=== PATIENT | female | born 1970 | race Caucasian/White ===

== ENCOUNTER 2020-06-12 22:42 | Inpatient (IN) ==
[2020-06-12] MEDS ORDERED: diphenhydrAMINE 50 MG/ML VIAL IV STA (22:54)
[2020-06-12] MEDS ORDERED: methylPREDNISolone 125 MG/2 ML VIAL IV STA (22:54)
--- NOTE | 2020-06-12 22:54 | Emergency Department Note ---
Impression & Plan Hypertensive emergency, Paresthesia of right arm and leg, Right arm weakness ED Provider Note Name: EVIE BARBOSA Age: 50 Sex: F Arrives Via: Walk-In Informant: Patient ED Provider: Hector Tracy MD Chief Complaint: Right sided weakness Impression: Hypertensive Emergency Paresthesia of right arm and leg Right arm weakness Medical Decision Makin yr old female with no significant PMH arrives with intermittent right arm/face/leg paresthesias and weakness. Anxious and severely HTN on arrival though without headache nor current neuro deficit. Given IV benadryl/solumedrol for contrast allergy and sent for CTa head w/wo con and cta neck. Given IV labetalol for HTN with mild initial improvement.. Labs OK, CXR clear, and EKG unremarkable. Suspect HTN emergency though TIA is clearly in differential. Given ASA 324 as no bleed. 2nd dose labetalol and SBP in 150s without further symptoms while here. Patient discussed with Hospitalist who will bring in for further management. Triage/Nursing Notes reviewed by Me Differentials:Benign hypertension, hypertensive emergency, tia/cva, cardiovascular pathology, toxicologic, pheochromocytoma, electrolyte abnormality, renal disease, endorgan damage, as well as other pathologies. Vital Signs: reviewed and remarkable for HTN Interventions: Benadryl 50mg IV, Solumedrol 125mg IV, ASA 324mg PO, Labetalol 10 mg IV x 2 Labs:Reviewed and remarkable for no significant abnormalities Imaging:X ray results are stated below per my interpretation: Chest: 1 view: No infiltrate, no effusion, normal cardiac border. [facility] Radiologist interpretation reviewed by me: CTA head/neck w wo con: no acute findings EKG:Per My Interpretation: Indication Stroke: NSR 73 bpm, qtc 425. No Ectopy. There are slight inferior ST depressions. No previous EKG for comparison. Cardiac/Tele Monitoring: Cardiac Monitoring: An Order was placed for continuous cardiac monitoring. The monitor shows a rate of 75 with a normal sinus rhythm. Consults:Dr Tomás Huddleston Hospitalist Plan: Disposition:Hospitalization. Condition: Good Prescriptions:None PDMP: n/a History of Present Illness:50 yr old female arrives for evaluation of right sided weakness and tingling. Patient notes she was feeling well the last few days and having a regular day. This evening noted episode around 7pm of tingling and paresthesias of right face, arm and leg. This went away and then returned again within the last hour. She notes symptoms involved weak/heavy feeling in extremity. Resolved en route to ED. No interventions prior to arrival. Nothing makes better nor worse, symptoms just seem to be coming and going. No medications taken tonight. Denies drugs, alcohol use. No trauma, injuries, nor falls. She denies headache, neck pain, vision changes, cp, sob, fevers, chills, nausea, vomiting, abdominal pain, back pain, leg swelling, urinary/bowel symptoms nor other symptoms ROS: See above HPI for pertinent positives & negatives. A total of 10 systems reviewed and were otherwise negative. Past Medical History:None Past Surgical History:Denies Family History:Brother: Stroke at 45yrs old Social History:Smoker for 20 yrs, Home Medications:None Allergies:IV Dye, Walnuts Vitals:Blood Pressure: 246/120, Pulse 74, RR 17, T 36.6C, O2 95% on RA Physical Exam: GENERAL: Patient is severely anxious appearing and in mild distress. EYES: No scleral icterus, unremarkable pupils. ENT: Mucous membranes moist, no nasal congestion. NECK: No masses appreciated, nomeningismus, trachea is midline. RESPIRATORY: No dyspnea. Clear to auscultation and equal bilaterally. No wheeze, no rhonchi. CARDIOVASCULAR: Regular rate and rhythm.No murmurs, rubs, gallops appreciated. GASTROINTESTINAL: Abdomen soft, non-tender, no peritonitis.Bowel sounds positive.No masses appreciated. BACK: No midline tenderness, no CVA tenderness EXTREMITIES: Normal motion all extremities, no cyanosis, no edema. NEUROLOGIC: Alert and oriented, no acute motor or sensory deficits, no focal weakness, cranial nerves grossly intact. SKIN: No rash, no jaundice, no diaphoresis. PSYCH: Appropriate, anxious GCS: 15 ED Course: Times/Reassessments: no further neuro complaints. BP gradually improving with labetalol. Critical Care: I have personally spent 30 minutes of critical care time in the direct management of this patient. Hypertensive Emergency with multiple antihypertensive IV meds. This was a life/limb threatening event. This 30 minutes is in excess of all separately billable procedures. Hector Tracy MD Past Med/Surg History Social History Smoking Status: Light tobacco smoker Hx Alcohol Use: Yes Hx Substance Use: No Preferred Language: Tajik Beliefs That Will Affect Care: None Current Living Situation: Spouse Feels Safe at Home: Yes Safety Concerns: Feels Safe At This Time Assistive Devices: Glasses Allergies Allergies Allergy/AdvReac Type Severity Reaction Status Date / Time tomato Allergy Unknown FRESH Unverified 06/12/20 23:31 TOMATOES HIVES walnut Allergy Unknown ULCERS Unverified 06/12/20 23:31 MOUTH CONTRASTMEDIA Allergy Unknown IVP Uncoded 06/12/20 23:31 DYE----HIVES Home Meds Home Medications Medication Instructions Recorded Confirmed No Known Home Medications 06/12/20 06/12/20 Results & Data (ED) Vital Signs Vital Signs - 24 hr 06/12/20 22:50 06/13/20 00:43 Temperature 36.6 C Temperature Source Oral Pulse Rate 74 Respiratory Rate 17 17 Respiratory Effort / Characteristics Non-Labored Spontaneous Non-Labored Spontaneous Respiratory Depth Normal Normal Respiratory Pattern Regular Regular Blood Pressure 246/120 H Blood Pressure [Right Arm] 220/110 H Blood Pressure Mean 162 Blood Pressure Mean [Right Arm] 146 Blood Pressure Position Semi-fowlers Pulse Oximetry 95 95 Oxygen Delivery Method Room Air Room Air Sepsis Recent Fever Within 48 Hours No Sepsis New/Unexplained Change in Mental Status No Sepsis Action Taken by Nursing No Action Required Laboratory Data Result diagrams: 06/12/20 22:59 06/12/20 22:59 Lab Results 06/12/20 06/12/20 06/12/20 Range/Units 22:58 22:58 22:59 WBC 9.17 (4.8-10.8) K/uL RBC 4.25 (4.2-5.4) M/uL Hgb 10.4 L (12.0-16.0) g/dL POC Hgb (12.0-16.0) g/dl Hct 32.4 L (37-47) % POC Hct (37-47) % MCV 76.2 L (80-100) fL MCH 24.5 L (25-34) pg MCHC 32.1 (32-36) g/dL RDW Std Deviation 42.1 (36.4-46.3) fL RDW Coeff of Mariama 14.9 H (11.5-14.5) % Plt Count 303 (130-400) K/uL MPV 11.0 H (7.4-10.4) fL Immature Gran % (Auto) 0.2 % Neut % (Auto) 60.0 % Lymph % (Auto) 32.0 % [place] % (Auto) 4.8 % Eos % (Auto) 2.7 % Baso % (Auto) 0.3 % Neut # (Auto) 5.50 (1.4-6.5) K/uL Lymph # (Auto) 2.93 (1.2-3.4) K/uL [place] # (Auto) 0.44 (0.11-0.59) K/uL Eos # (Auto) 0.25 (0-0.5) K/uL Baso # (Auto) 0.03 (0-0.2) K/uL Immature Gran # (Auto) 0.02 (0.00-0.02) K/uL POC Sodium (135-144) mmol/L Sodium (136-145) mmol/L POC Potassium (3.3-5.0) mmol/L Potassium (3.5-5.1) mmol/L POC Chloride (101-112) mmol/L Chloride (98-107) mmol/L Carbon Dioxide (21-32) mmol/L POC Total CO2 (24-31) mmol/L Anion Gap (3-11) POC Anion Gap (16-25) mmol/L POC BUN (7-18) mg/dl BUN (7-18) mg/dl Creatinine (0.6-1.2) mg/dl POC Creatinine (0.6-1.3) mg/dl Est Cr Clr Drug Dosing ml/min Est GFR ( Amer) Est GFR (Non-Af Amer) BUN/Creatinine Ratio (10-20) Glucose (70-99) mg/dl POC Glucose (other) (70-99) mg/dl Calcium (8.5-10.1) mg/dl POC Ioniz Calcium Temo (1.12-1.32) mmol/l Magnesium (1.8-2.4) mg/dl Total Bilirubin (0.2-1) mg/dl Direct Bilirubin (0-0.2) mg/dl AST (15-37) U/L ALT (12-78) U/L Alkaline Phosphatase (45-117) U/L Troponin I (0-0.045) ng/ml Total Protein (6.4-8.2) gm/dl Albumin (3.4-5.0) gm/dl Urine Color Urine Appearance (Clear) Urine pH (4.5-7.5) Ur Specific [place] (1.000-1.030) Urine Protein (Negative) Urine Glucose (UA) (Negative) Urine Ketones (Negative) Urine Blood (Negative) Urine Nitrite (Negative) Urine Bilirubin (Negative) Urine Urobilinogen (Negative) Ur Leukocyte Esterase (Negative) COVID-19 Eval Order Covid19 IDNow [facility] SARS-CoV-2, RNA, NAAT NEGATIVE (NEGATIVE) 06/12/20 06/12/20 06/13/20 Range/Units 22:59 23:01 00:30 WBC (4.8-10.8) K/uL RBC (4.2-5.4) M/uL Hgb (12.0-16.0) g/dL POC Hgb 10.9 L (12.0-16.0) g/dl Hct (37-47) % POC Hct 32 L (37-47) % MCV (80-100) fL MCH (25-34) pg MCHC (32-36) g/dL RDW Std Deviation (36.4-46.3) fL RDW Coeff of Mariama (11.5-14.5) % Plt Count (130-400) K/uL MPV (7.4-10.4) fL Immature Gran % (Auto) % Neut % (Auto) % Lymph % (Auto) % [place] % (Auto) % Eos % (Auto) % Baso % (Auto) % Neut # (Auto) (1.4-6.5) K/uL Lymph # (Auto) (1.2-3.4) K/uL [place] # (Auto) (0.11-0.59) K/uL Eos # (Auto) (0-0.5) K/uL Baso # (Auto) (0-0.2) K/uL Immature Gran # (Auto) (0.00-0.02) K/uL POC Sodium 139 (135-144) mmol/L Sodium 139 (136-145) mmol/L POC Potassium 3.4 (3.3-5.0) mmol/L Potassium 3.5 (3.5-5.1) mmol/L POC Chloride 102 (101-112) mmol/L Chloride 105 (98-107) mmol/L Carbon Dioxide 26 (21-32) mmol/L POC Total CO2 27 (24-31) mmol/L Anion Gap 8.0 (3-11) POC Anion Gap 14.0 L (16-25) mmol/L POC BUN 10 (7-18) mg/dl BUN 10 (7-18) mg/dl Creatinine 1.02 (0.6-1.2) mg/dl POC Creatinine 0.9 (0.6-1.3) mg/dl Est Cr Clr Drug Dosing 67.1 ml/min Est GFR ( Amer) 73.8 Est GFR (Non-Af Amer) 63.6 BUN/Creatinine Ratio 9.7 L (10-20) Glucose 111 H (70-99) mg/dl POC Glucose (other) 106 H (70-99) mg/dl Calcium 8.7 (8.5-10.1) mg/dl POC Ioniz Calcium [place] 1.13 (1.12-1.32) mmol/l Magnesium 2.0 (1.8-2.4) mg/dl Total Bilirubin 0.2 (0.2-1) mg/dl Direct Bilirubin < 0.1 (0-0.2) mg/dl AST 6 L (15-37) U/L ALT 15 (12-78) U/L Alkaline Phosphatase 86 (45-117) U/L Troponin I < 0.015 (0-0.045) ng/ml Total Protein 7.7 (6.4-8.2) gm/dl Albumin 3.4 (3.4-5.0) gm/dl Urine Color Yellow Urine Appearance Clear (Clear) Urine pH 7.5 (4.5-7.5) Ur Specific [place] 1.030 (1.000-1.030) Urine Protein Negative (Negative) Urine Glucose (UA) Negative (Negative) Urine Ketones Negative (Negative) Urine Blood Negative (Negative) Urine Nitrite Negative (Negative) Urine Bilirubin Negative (Negative) Urine Urobilinogen Negative (Negative) Ur Leukocyte Esterase Negative (Negative) COVID-19 Eval Order SARS-CoV-2, RNA, NAAT (NEGATIVE) Administered Medications Labetalol HCl (Labetalol Hcl Iv 5 Mg/Ml 20ml) 10 mg IV Q4H PRN PRN Reason: Hypertension Stop: 07/13/20 02:25 Last Admin: 06/13/20 02:42 Dose: 10 mg Documented by: [id number] Cosigned by: [id number] Discontinued Medications Aspirin (Aspirin 81 Mg Chew) 324 mg PO NOW STA Stop: 06/13/20 00:03 Last Admin: 06/13/20 00:13 Dose: 324 mg Documented by: [id number] Diphenhydramine HCl (Diphenhydramine 50 Mg/Ml Vial) 50 mg IV NOW STA Stop: 06/12/20 22:55 Last Admin: 06/12/20 22:58 Dose: 50 mg Documented by: [id number] Hydralazine HCl (Hydralazine Hcl 20 Mg/Ml Vial) 7.5 mg IV NOW STA Stop: 06/13/20 02:04 Last Admin: 06/13/20 02:12 Dose: 7.5 mg Documented by: [id number] Ioversol (Optiray 320 125ml) 125 ml IV ONCE ONE Stop: 06/12/20 23:16 Last Admin: 06/12/20 23:16 Dose: 118 ml Documented by: [id number] Labetalol HCl (Labetalol Hcl Iv 5 Mg/Ml 20ml) 10 mg IV NOW STA Stop: 06/12/20 23:10 Last Admin: 06/12/20 23:31 Dose: 10 mg Documented by: [id number] Cosigned by: [id number] Labetalol HCl (Labetalol Hcl Iv 5 Mg/Ml 20ml) 10 mg IV NOW STA Stop: 06/13/20 00:53 Last Admin: 06/13/20 00:56 Dose: 10 mg Documented by: [id number] Cosigned by: [id number] Methylprednisolone (Methylprednisolone 125 Mg/2 Ml Vial) 125 mg IV NOW STA Stop: 06/12/20 22:55 Last Admin: 06/12/20 22:58 Dose: 125 mg Documented by: [id number] Discharge Plan Visit Data Chief Complaint: Stroke/CVA Symptoms Stated Complaint: RIGHT SIDE OF FACE IS NUMB, LEG AND ARM ED Provider: Hector Tracy Discharge Problem: Hypertensive emergency, Paresthesia of right arm and leg, Right arm weakness Patient Disposition: Admitted As Inpatient Discharge Instructions Interventions: ED Discharge Assessment Last Done: 06/13/20 02:12
[2020-06-12 23:06] LABS: Basophils # (auto) 0.03 K/uL (0-0.2); Basophils % (auto) 0.3 %; Eosinophils # (auto) 0.25 K/uL (0-0.5); Eosinophils % (auto) 2.7 %; Hematocrit (blood only) 32.4 % (37-47); Hemoglobin 10.4 g/dL (12.0-16.0); Immature Granulocytes # (auto) 0.02 K/uL (0.00-0.02); Immature Granulocytes % (auto) 0.2 %; Lymphocytes # (auto) 2.93 K/uL (1.2-3.4); Mean Corpuscular Hemoglobin 24.5 pg (25-34); Mean Corpuscular Hgb Conc 32.1 g/dL (32-36); Mean Corpuscular Volume 76.2 fL (80-100); Monocytes # (auto) 0.44 K/uL (0.11-0.59); Monocytes % (auto) 4.8 %; Platelet Count 303 K/uL (130-400); RDW Coefficient of Variation 14.9 % (11.5-14.5); RDW Standard Deviation 42.1 fL (36.4-46.3); Red Blood Count 4.25 M/uL (4.2-5.4); White Blood Count 9.17 K/uL (4.8-10.8)
[2020-06-12] MEDS ORDERED: LABETALOL HCL IV 5 MG/ML 20ML IV STA (23:09)
[2020-06-12 23:14] LABS: iSTAT Creatinine 0.9 mg/dl (0.6-1.3); iSTAT Hemoglobin 10.9 g/dl (12.0-16.0); iSTAT Ionized Calcium 1.13 mmol/l (1.12-1.32); iSTAT Potassium 3.4 mmol/L (3.3-5.0)
[2020-06-12] MEDS ORDERED: OPTIRAY 320 125ml IV ONE (23:15)
[2020-06-12 23:22] LABS: Alanine Aminotransferase 15 U/L (12-78); Albumin Level 3.4 gm/dl (3.4-5.0); Aspartate Aminotransferase 6 U/L (15-37); BUN Creatinine Ratio 9.7 (10-20); Bilirubin Direct < 0.1 mg/dl (0-0.2); Blood Urea Nitrogen 10 mg/dl (7-18); Calcium 8.7 mg/dl (8.5-10.1); Carbon Dioxide 26 mmol/L (21-32); Chloride 105 mmol/L (98-107); Creatinine Clr Calc Pharmacy 67.1 ml/min; Est GFR (African American) 73.8; Est GFR (Non-African American) 63.6; Glucose 111 mg/dl (70-99); Potassium 3.5 mmol/L (3.5-5.1); Sodium 139 mmol/L (136-145)
[2020-06-12 23:27] LABS: Alkaline Phosphatase 86 U/L (45-117); Bilirubin,Total 0.2 mg/dl (0.2-1); Total Protein 7.7 gm/dl (6.4-8.2); Troponin I < 0.015 ng/ml (0-0.045)
[2020-06-13] MEDS ORDERED: ASPIRIN 81 MG CHEW PO STA (00:02)
[2020-06-13 00:41] LABS: Appearance Urine Clear (Clear); Bilirubin Urine Negative (Negative); Blood Urine Negative (Negative); Color Urine Yellow; Glucose Urine UA Negative (Negative); Ketones Urine Negative (Negative); Leukocyte Esterase Urine Negative (Negative); Nitrite Urine Negative (Negative); Protein Urine Negative (Negative); Urobilinogen Urine Negative (Negative); pH Urine 7.5 (4.5-7.5)
[2020-06-13] MEDS ORDERED: LABETALOL HCL IV 5 MG/ML 20ML IV STA (00:52)
[2020-06-13] MEDS ORDERED: hydrALAZINE HCL 20 MG/ML VIAL IV STA (02:03)
[2020-06-13] MEDS ORDERED: NITROGLYCERIN SL 0.4 MG/TAB TAB SL PRN (02:26)
[2020-06-13] MEDS ORDERED: LABETALOL HCL IV 5 MG/ML 20ML IV PRN (02:26)
[2020-06-13] MEDS ORDERED: ONDANSETRON INJ 2 MG/ML 2 ML VIAL IV PRN (02:26)
[2020-06-13] MEDS ORDERED: PHARMACIST DISCHARGE MED REC CONSULT PRN (02:26)
[2020-06-13] MEDS ORDERED: POLYETHYLENE (MIRALAX) 17 GM PACK PO PRN (02:26)
[2020-06-13] MEDS ORDERED: ACETAMINOPHEN 325 MG TAB PO PRN (02:26)
--- NOTE | 2020-06-13 03:19 | History and Physical Report ---
DATE OF ADMISSION: 06/13/2020 CHIEF COMPLAINT: Stroke-like symptoms. HISTORY OF PRESENT ILLNESS: A 50-year-old female, no significant medical problems, ongoing tobacco abuse, did not go to family doctor for many years, presents with tingliness and numbness in her right hand and right feet and ankle region, started at 7:00 p.m. on 06/12/2020, initially improved but then again came back and she was brought to the hospital. When she came in, her blood pressure was very high, systolic blood pressures was in 240s. Her initial workup with a CTA of the head and CT of the head is unremarkable. Currently, her symptoms improved. Denies any dysphagia. Speech is okay. No other weakness. No chest pain, no shortness of breath, no cough, no fever, no chills, no loss of sense of smell or taste. No exposure to COVID patients. She gets headaches on and off. Currently, no headache, no blurred vision, no earache, no runny nose, no sore throat. Appetite is okay. Normal bowel and bladder movements. Currently, resting comfortably. ALLERGIES: No known drug allergies. PAST MEDICAL HISTORY: None. PAST SURGICAL HISTORY: None on records. MEDICATIONS: None. FAMILY HISTORY: Unknown. SOCIAL HISTORY: Lives with , smokes 0.3 packs a day for last 20-30 years. No alcohol use, no drug use. REVIEW OF SYMPTOMS: As per HPI. Rest of review of systems negative. PHYSICAL EXAMINATION: GENERAL: The patient is obese, not in acute distress. VITAL SIGNS: Temperature 36.6, pulse 74, respiratory rate 17, blood pressure 220/110, oxygen 95% on room air. HEENT: No pallor, no icterus. Pupils equal, round, reactive to light. NECK: No JVD, no neck masses. CARDIOVASCULAR: S1, S2, regular rate and rhythm, no murmur, no gallop. RESPIRATORY SYSTEM: Normal AP diameter. No accessory muscle use. No wheezing, no crackles. ABDOMEN: Soft, bowel sounds present, nontender, nondistended. CENTRAL NERVOUS SYSTEM: Alert and oriented. Speech is clear. No facial droop. Tongue midline. Extraocular muscles intact. Power 5/5 in all extremities. Sensation is intact. No pronator drift. Coordination of movements normal. EXTREMITIES: No edema, no erythema. LABORATORY DATA: WBC is 9.1, hemoglobin 10.4, hematocrit 32.4, platelets 303. Sodium 139, potassium 3.5, chloride 105, bicarbonate 26, BUN 10, creatinine 1.02, serum glucose 111, calcium 8.7, magnesium 2, total bilirubin 0.2, direct bilirubin less than 0.1, AST 6, ALT 15, alkaline phosphatase 86. Troponin I less than 0.015. Urinalysis negative. SARS-CoV-2 negative. IMAGING: CTA of the head, no acute findings. Head CT, no acute findings. Chest x-ray, no acute findings. EKG: Normal sinus rhythm, rate of 73, nonspecific ST abnormalities. No previous ECGs available. ASSESSMENT AND PLAN: This 50-year-old female who presents with stroke-like symptoms. 1. Stroke-like symptoms, hypertensive urgency/emergency. The patient has some tingliness and numbness in the right hand and right leg, but that resolved. Blood pressures were very high when she came in. Initial workup, CTA of the head and CT of the head unremarkable. We will do full stroke workup with MRI scan, echo and carotid Dopplers and speech evaluation, neuro evaluation in a.m. Will start on statin and aspirin and check fasting lipids, follow HbA1c levels and closely monitor in the tele floor. 2. Hypertensive urgency/emergency. We will allow permissive hypertension for now. We will place on IV labetalol p.r.n. for systolic pressure greater than 190, start on lisinopril, hydrochlorothiazide from a.m. Monitor the blood pressure closely. 3. Anemia. We will follow stool for Hemoccult, iron studies, vitamin B12 studies. The patient followed with [facility] in the past for abnormal uterine bleeding. At that time she had simple ovarian cyst, needs followup. 4. Deep venous thrombosis prophylaxis, sequential compression devices for now. 5. Disposition: Closely monitor in tele floor. Level 1 full code. MTDD
[2020-06-13] MEDS ORDERED: GADOBUTROL 65ML VIAL IV ONE (04:03)
[2020-06-13 06:01] LABS: Basophils # (auto) 0.01 K/uL (0-0.2); Basophils % (auto) 0.1 %; Hematocrit (blood only) 31.8 % (37-47); Hemoglobin 9.9 g/dL (12.0-16.0); Immature Granulocytes # (auto) 0.01 K/uL (0.00-0.02); Immature Granulocytes % (auto) 0.1 %; Lymphocytes # (auto) 0.51 K/uL (1.2-3.4); Mean Corpuscular Hemoglobin 23.7 pg (25-34); Mean Corpuscular Hgb Conc 31.1 g/dL (32-36); Mean Corpuscular Volume 76.3 fL (80-100); Mean Platelet Volume 10.6 fL (7.4-10.4); Monocytes # (auto) 0.04 K/uL (0.11-0.59); Monocytes % (auto) 0.6 %; Neutrophils # (auto) 6.69 K/uL (1.4-6.5); Neutrophils % (auto) 92.2 %; Platelet Count 279 K/uL (130-400); RDW Coefficient of Variation 14.9 % (11.5-14.5); RDW Standard Deviation 41.8 fL (36.4-46.3); Red Blood Count 4.17 M/uL (4.2-5.4); White Blood Count 7.26 K/uL (4.8-10.8)
[2020-06-13 06:18] LABS: Estimated Average Glucose 111 mg/dl; Hemoglobin A1C 5.5 % (4.5-5.6)
[2020-06-13 06:42] LABS: BUN Creatinine Ratio 10.5 (10-20); Calcium 8.9 mg/dl (8.5-10.1); Creatinine Clr Calc Pharmacy 70.4 ml/min; Est GFR (African American) 79.4; Est GFR (Non-African American) 68.5; Potassium 3.6 mmol/L (3.5-5.1)
--- NOTE | 2020-06-13 06:46 | XRay Report ---
XR chest 1V portable HISTORY: 50 years-old Female right sided tingling/weakness acute right-sided chest pain COMPARISON: CTA head neck of same day TECHNIQUE: Portable AP view of the chest FINDINGS: Cardiac silhouette is upper limits of normal in size. No pneumothorax, pleural effusion, airspace con solidation or overt pulmonary edema. Bones of the chest appear grossly intact. IMPRESSION: No acute process. ACT 112: Negative or not required by law. The above report was generated using voice recognition software. It may contain grammatical, syntax o r spelling errors. Electronically signed by: Catracho Diamond M.D. 06/13/2020 6:45 AM
[2020-06-13 06:47] LABS: Ferritin 2.8 ng/ml (8-388)
--- NOTE | 2020-06-13 06:50 | CT Scan Report ---
CT head/brain wo con CLINICAL HISTORY: Right paresthesias RIGHT FACIAL NUMBNESS COMPARISON STUDY: None TECHNIQUE: Axial CT of the brain is performed from the vertex to the skull base. IV contrast was not administered for this examination. A dose lowering technique was utilized adhering to the principles of ALARA. CT DOSE: 1088.53 mGy.cm FINDINGS: No intra or extra-axial mass lesions are visualized. There is no CT evidence of acute cortical infarc tion. There is no evidence of midline shift. There is no acute hemorrhage. No calvarial fractures ar e visualized. There are minor white matter hypodensities likely on a small vessel basis. There is no evidence of pathologic ventricular dilatation. There is no evidence of acute sinusitis IMPRESSION: No acute intracranial findings ACT 112: Negative or not required by law. Electronically signed by: Fadi Soni M.D. 06/13/2020 6:48 AM
--- NOTE | 2020-06-13 07:03 | CT Scan Report ---
CT angio head w con CLINICAL HISTORY: 50 years-old Female with right arm/leg tingling. Acute strokelike symptoms COMPARISON STUDY: CT head and CTA head and neck studies of same day, brain MRI 06/13/2020 TECHNIQUE: Following the IV administration of 118 cc of Optiray 320, CT angiogram of the brain was pe rformed from the skull base to the vertex. Images are reviewed in the axial, sagittal, and coronal pl anes. 3-D MIPS images are created and assessed. IV contrast was administered without complication. Al l measurements were obtained according to NASCET criteria. A dose lowering technique was utilized adh ering to the principles of ALARA. FINDINGS: The imaged internal carotid arteries are widely patent. The middle and anterior cerebral arteries are patent. The imaged vertebral arteries as well as the basilar and posterior cerebral arteries are wid james patent. No aneurysm, dissection, high-grade stenosis or proximal branch occlusion. There is moder ate luminal narrowing of the left posterior cerebral artery on image 118 series 5. Cerebral venous si nuses are patent. There is no abnormal intracranial enhancement. IMPRESSION: No aneurysm, dissection, high-grade stenosis or proximal branch occlusion identified. ACT 112: Negative or not required by law. The above report was generated using voice recognition software. It may contain grammatical, syntax o r spelling errors. Electronically signed by: Catracho Diamond M.D. 06/13/2020 7:02 AM
--- NOTE | 2020-06-13 07:10 | CT Scan Report ---
CT angio neck with con CLINICAL HISTORY: Right facial numbness. Possible acute stroke COMPARISON STUDY: No previous studies for comparison. TECHNIQUE: CT angiography was performed from the aortic arch to the skull base. MIP imaging was perfo rmed. The patient was scanned in a dynamic helical fashion during intravenous administration of 118 c c of Optiray 320. A dose lowering technique was utilized adhering to the principles of ALARA. CT DOSE: Technique: CT angiogram of the carotid and vertebral arteries was obtained using intravenous contrast and 3-D reconstruction. NASCET criteria was utilized. Findings: There is nonspecific effacement of the left piriform sinus. The right carotid revealed no evidence of aneurysm and no evidence of dissection. There is no evidenc e of hemodynamic significant stenosis. The left carotid revealed no evidence of hemodynamic significant stenosis. There is no evidence of an eurysm. There is no evidence of dissection. There is no evidence of hemodynamically significant vertebral stenosis. There is no evidence of verte bral dissection. IMPRESSION: No evidence of hemodynamically significant carotid or vertebral artery stenosis. No evidence of disse ction. ACT 112: Negative or not required by law. Electronically signed by: Fadi Soni M.D. 06/13/2020 7:09 AM
--- NOTE | 2020-06-13 07:19 | Magnetic Resonance Report ---
MRI OF THE BRAIN WITHOUT AND WITH IV CONTRAST CLINICAL HISTORY: Right facial numbness. Possible acute stroke COMPARISON STUDY: Head CT dated 06/12/2020 TECHNIQUE: MRI of the brain was performed from the vertex to the skull base utilizing various T1 and T2 weighted sequences. Following the IV administration of 8.5 mL of Gadavist contrast, additional enh anced images were obtained. FINDINGS: Sagittal T1, axial diffusion, proton density and T2 weighted axial, coronal FLAIR, and pre and post a xial T1-weighted images were acquired. These were supplemented with post gadolinium coronal T1 weight ed images. No intra or extra-axial mass lesions are visualized. Axial diffusion-weighted images reveal no evidence of acute or subacute infarction. There is no evidence of ventricular dilatation. Proton density T2-weighted and FLAIR images reveal a few scattered nonspecific foci of increased FLAI R signal within the white matter. The largest is a 3 mm focus within the right frontal white matter. There are no abnormal flow voids. There is no evidence of pathologic enhancement. IMPRESSION: 1. No acute intracranial findings 2. No evidence of acute or subacute infarction 3. No evidence of intracranial mass. ACT 112: Negative or not required by law. Electronically signed by: Fadi Soni M.D. 06/13/2020 7:18 AM
[2020-06-13] MEDS: ATORVASTATIN 40 MG TAB PO SCH (08:33)
[2020-06-13] MEDS: ASPIRIN 81 MG ECTAB PO SCH (08:33)
[2020-06-13] MEDS ORDERED: LISINOPRIL/HCTZ 10/12.5MG TAB PO SCH (09:00)
--- NOTE | 2020-06-13 11:37 | Electrocardiogram Report ---
Test Reason : Blood Pressure : / mmHG Vent. Rate : 073 BPM Atrial Rate : 073 BPM P-R Int : 146 ms QRS Dur : 076 ms QT Int : 386 ms P-R-T Axes : 070 -02 -68 degrees QTc Int : 425 ms Normal sinus rhythm Abnormal ECG No previous ECGs available Confirmed by Ezio Hernandez [id number]) on 06/13/2020 11:37:31 AM Referred By: REFERRED SELF Confirmed By:Haile Hernandez
--- NOTE | 2020-06-13 15:48 | Neurology Consultation ---
Date of Consultation June 13, 2020 Assessment & Plan (1) Hypertensive emergency: 1. need to follow up with PCP to optimize treatment Present on Admission?: Yes (2) Paresthesia of right arm and le. MRI brain no CVA 2. CTA head and neck -no occlusion or significant stenosis 3. TTE- no ASD 4. start aspirin 81 mg and plavix 75 mg x 21 days then aspirin 81 mg for life 5. abnormal bleeding history-needs address with low iron 6. optimize HTN HLD LDL <70 7. smoking cessation strongly urged 8. PT/OT speech no focal deficit at this time neurology as outpatient in 4-6 week Kamilah Davenport PAC schedule Supervising Physician Co-Signing Physician Notes I have seen and discussed above patient with Dr Kamilah Woodard, neurology Pt seen and examined, Hx images, labs reviewed. Pt had similar episode while in my presence of numb tingling R face, arm leg, without change in vision with difficult to describe "dizziness". BP was 174/102 no headache. CN, motor, sensory to LT cerebellar function was normal. Impression:TIA, likely small vessel v hypertensive urgency. Cont asa, start plavix now. Monitor bp. I would avoid rapid reduction of bp and permissive htn is reasonable unless pt is clearly symptomatic (chest pain, cardiac ischemia) of bp is greater than 220/120. Statin tx, smoking cessation. Will follow with you. SILVIA Woodard MD History of Present Illness Reason for Consultation: stroke like symptoms Requesting Physician: Washington Johansen MD Attending Physician: Washington Johansen MD History of Present Illness Leigh Ann is a 50 year old female with no significant PMH arrives with intermittent right arm/face/leg paresthesias with minimal weakness. She was hypertensive and denies headache and had no neuro deficit in ED. She was given labetalol for HTN. she does have a history of migraine that are pounding with nausea but she has never had complex migraines. She has not been to a doctor in years and has never been on blood pressure medication. He is a 4-5 per day cigarette smoker, drinks 3-4 pepsis per day and ice tea, no other drugs. she works at [employer] in [place]. She has 1 child and has a history of heavy bleeding and was offered a hysterectomy but never went back. She can had a period for several weeks at a time. The numbness and tingling was in right 1/2 face lip and chin, arm and some in her R leg. It comes and goes but only lasts several minutes at a time. denies CP, SOB, abdominal pain, vision changes, current symptoms N, headache. Allergies Allergy/AdvReac Type Severity Reaction Status Date / Time tomato Allergy Unknown FRESH Unverified 06/12/20 23:31 TOMATOES HIVES walnut Allergy Unknown ULCERS Unverified 06/12/20 23:31 MOUTH CONTRASTMEDIA Allergy Unknown IVP Uncoded 06/12/20 23:31 DYE----HIVES Home Medications Medication Instructions Recorded Confirmed Type No Known Home Medications 06/12/20 06/12/20 History Patient History Social History Smoking Status: Light tobacco smoker Hx Alcohol Use: Yes Hx Substance Use: No Preferred Language: Pashto Communication Ability: Effective Beliefs That Will Affect Care: None Current Living Situation: Spouse Feels Safe at Home: Yes Safety Concerns: Feels Safe At This Time Assistive Devices: Glasses Review of Systems Review of Systems: All systems reviewed & are unremarkable except as noted in HPI & below and All systems reviewed & are unremarkable except as noted in Subjective Physical Exam Physical Exam: Physical Exam: Constitutional: appearance over nourished, healthy Ears, Nose, Mouth and Throat: mucous membranes moist, no injection and skin normal, eyes normal Cardiovascular: normal S-1 and S-2 and regular rate and rhythm Respiratory: course breath sounds Musculoskeletal: no peripheral edema and good distal pulses Skin: no stigmata of neurocutaneous disease noted and normal and intact Eyes: extraocular muscles intact (EOMI) and pupils equal, round and reactive to light (PERRL) NEUROLOGIC EXAMINATION: Mental status: Alert and interactive Oriented to full date and location Oriented to person Speech fluent with no evidence of aphasia Cranial Nerves facial symmetry, smile eye brow raise symmetric Reflexes: Deep tendon reflexes were symmetrical and graded 2/5. down going Sensory: to light touch from side to side Coordination: finger to nose, heel to cuadra intact Gait/Stance: Posture normal lying in bed Motor: Negative for pronator drift of out stretched arms with eyes closed. 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, hip flex patellar plantar flex ext Results & Data ([facility]) Vital Signs (Past 12 Hours) Vital Signs Temp Pulse Pulse Resp BP BP Pulse Ox 06/13/20 15:44 36.7 C 77 20 165/91 H 96 06/13/20 14:44 77 06/13/20 13:31 70 20 157/83 H 97 06/13/20 09:17 82 14 183/81 H 98 06/13/20 07:32 36.4 C L 72 18 178/86 H 97 06/13/20 07:00 73 06/13/20 04:24 36.9 C 72 16 151/91 H 95 Laboratory Results Abnormal lab results 06/12/20 06/12/20 06/12/20 Range/Units 22:59 22:59 23:01 RBC (4.2-5.4) M/uL Hgb 10.4 L (12.0-16.0) g/dL POC Hgb 10.9 L (12.0-16.0) g/dl Hct 32.4 L (37-47) % POC Hct 32 L (37-47) % MCV 76.2 L (80-100) fL MCH 24.5 L (25-34) pg MCHC (32-36) g/dL RDW Coeff of Mariama 14.9 H (11.5-14.5) % MPV 11.0 H (7.4-10.4) fL Neut # (Auto) (1.4-6.5) K/uL Lymph # (Auto) (1.2-3.4) K/uL [place] # (Auto) (0.11-0.59) K/uL Chloride (98-107) mmol/L POC Anion Gap 14.0 L (16-25) mmol/L BUN/Creatinine Ratio 9.7 L (10-20) Glucose 111 H (70-99) mg/dl POC Glucose (other) 106 H (70-99) mg/dl Iron (35-150) mcg/dl Ferritin (8-388) ng/ml AST 6 L (15-37) U/L 06/13/20 06/13/20 Range/Units 05:46 05:46 RBC 4.17 L (4.2-5.4) M/uL Hgb 9.9 L (12.0-16.0) g/dL POC Hgb (12.0-16.0) g/dl Hct 31.8 L (37-47) % POC Hct (37-47) % MCV 76.3 L (80-100) fL MCH 23.7 L (25-34) pg MCHC 31.1 L (32-36) g/dL RDW Coeff of Mariama 14.9 H (11.5-14.5) % MPV 10.6 H (7.4-10.4) fL Neut # (Auto) 6.69 H (1.4-6.5) K/uL Lymph # (Auto) 0.51 L (1.2-3.4) K/uL [place] # (Auto) 0.04 L (0.11-0.59) K/uL Chloride 108 H (98-107) mmol/L POC Anion Gap (16-25) mmol/L BUN/Creatinine Ratio (10-20) Glucose 158 H (70-99) mg/dl POC Glucose (other) (70-99) mg/dl Iron 15 L (35-150) mcg/dl Ferritin 2.8 L (8-388) ng/ml AST (15-37) U/L Diagnostic Findings CTA head-No aneurysm, dissection, high-grade stenosis or proximal branch occlusion identified. CTA neck-No evidence of hemodynamically significant carotid or vertebral artery stenosis. No evidence of dissection. MRI brain- No acute intracranial findings No evidence of acute or subacute infarction No evidence of intracranial mass. TTE- EF 60-65% no ASD
[2020-06-13] MEDS: CLOPIDOGREL BISULFATE 75 MG TAB PO SCH (17:21)
[2020-06-13] MEDS: FERROUS SULFATE 325 MG TAB PO SCH (17:21)
[2020-06-14 06:49] LABS: Basophils # (auto) 0.01 K/uL (0-0.2); Basophils % (auto) 0.1 %; Eosinophils # (auto) 0.02 K/uL (0-0.5); Eosinophils % (auto) 0.1 %; Hematocrit (blood only) 30.7 % (37-47); Hemoglobin 9.6 g/dL (12.0-16.0); Immature Granulocytes # (auto) 0.01 K/uL (0.00-0.02); Immature Granulocytes % (auto) 0.1 %; Lymphocytes # (auto) 2.31 K/uL (1.2-3.4); Lymphocytes % (auto) 17.3 %; Mean Corpuscular Hgb Conc 31.3 g/dL (32-36); Mean Corpuscular Volume 76.8 fL (80-100); Mean Platelet Volume 11.2 fL (7.4-10.4); Monocytes # (auto) 0.85 K/uL (0.11-0.59); Monocytes % (auto) 6.4 %; Neutrophils # (auto) 10.17 K/uL (1.4-6.5); Platelet Count 303 K/uL (130-400); RDW Coefficient of Variation 15.3 % (11.5-14.5); RDW Standard Deviation 43.3 fL (36.4-46.3); White Blood Count 13.37 K/uL (4.8-10.8)
[2020-06-14 07:14] LABS: BUN Creatinine Ratio 13.3 (10-20); Calcium 9.1 mg/dl (8.5-10.1); Est GFR (African American) 68.8; Est GFR (Non-African American) 59.4; Potassium 3.7 mmol/L (3.5-5.1)
[2020-06-14] MEDS: FERROUS SULFATE 325 MG TAB PO SCH ×3 (08:13→18:22)
[2020-06-14] MEDS: ASPIRIN 81 MG ECTAB PO SCH (08:13)
[2020-06-14] MEDS: CLOPIDOGREL BISULFATE 75 MG TAB PO SCH (08:13)
[2020-06-14] MEDS: ATORVASTATIN 40 MG TAB PO SCH (08:13)
[2020-06-14] MEDS ORDERED: lisinopril 10 MG TAB PO SCH (09:00)
--- NOTE | 2020-06-14 12:49 | Hospitalist Progress Note ---
Date of Service June 14, 2020 Assessment & Plan (1) Hypertensive emergency: Presented to ER with strokelike symptoms involving numbness in right-sided extremities Resolved in the emergency room with 2 episodes while in the hospital Likely secondary to very high blood pressure which was as high as 246/120 Blood pressure seems to be very well controlled She was not taking any medications for high blood pressure as an outpatient Received 1 dose of lisinopril with her hydrochlorothiazide yesterday Received lisinopril 10 this morning and the blood pressure is 127/84 Advised to monitor blood pressure as an outpatient and give lisinopril 5 mg on discharge if the blood pressure is more than systolic 140 (2) Paresthesia of right arm and leg: Likely secondary to hypertensive urgency/TIA No evidence of a stroke Appreciate neurology input and recommendation No arrhythmias Echo of the heart showed: Normal LV wall thickness, no regional wall motion abnormality, EF was 60 to 65%, no significant valvular heart disease, no evidence of atrial septal defect Remains stable as of this morning She will get Plavix and aspirin for 21 days then aspirin to continue for life We will need to have an appointment with new neurologist in 4 to 6 weeks (3) Right arm weakness: No weakness noted (4) Iron deficiency anemia: Has history of abnormal uterine bleeding Blood counts suggest microcytic hypochromic anemia Likely secondary to iron deficiency Ferrous sulfate has been started Will have PT and OT evaluation and likely discharge this afternoon Admission and Anticipated Discharge Date Admission Date: June 13, 2020 Subjective 06/14/2020 The patient was seen and examined in the telemetry unit She has had 2 episodes of numbness involving the right upper extremity since admission which did not last for more than few minutes and without any other associated symptoms Her blood pressure seems to be well controlled and seems to be low as well He will get PT and OT evaluation and probable discharge this afternoon Review of Systems Review of Systems: All systems reviewed and are unremarkable except as noted below Neurologic: + numbness (Right upper extremity and some time right side of the body without any associated symptoms) Physical Exam Physical Exam: Lying in bed comfortably Constitutional: WD/WN, vitals as above Eyes: PERRL, conjunctivae normal, anicteric sclerae ENMT: external ear and nose normal, oropharynx normal Neck: trachea midline, no thyromegaly Respiratory: no respiratory distress Auscultation: lungs clear to auscultation bilaterally Cardiovascular: Rate/Rhythm: regular rate and regular rhythm Heart Sounds: no murmur Extremities: + edema (Trace edema bilaterally) Gastrointestinal (Abdomen): Inspection/Auscultation: normal bowel sounds; abdomen not distended Percussion/Palpation: abdomen soft; abdomen nontender Musculoskeletal: No acute arthritis in any joint Neurologic: Alert, awake and oriented x3. No focal sensory and motor deficit appreciated Psychiatric: A+Ox3, euthymic affect Lymphatic: no cervical or axillary lymphadenopathy Results & Data Results & Data ([facility]) Vital Signs (Past 12 Hours) Vital Signs Temp Pulse Pulse Resp BP BP Pulse Ox 06/14/20 10:40 36.5 C 63 18 127/84 97 06/14/20 07:00 36.6 C 53 L 53 L 14 151/81 H 98 06/14/20 05:57 121/79 06/14/20 04:00 36.9 C 65 16 132/80 96 Laboratory Results Short CBC 06/14/20 Range/Units 06:18 WBC 13.37 H (4.8-10.8) K/uL Hgb 9.6 L (12.0-16.0) g/dL Hct 30.7 L (37-47) % Plt Count 303 (130-400) K/uL BMP 06/14/20 06:18 Sodium 139 Potassium 3.7 Chloride 104 Carbon Dioxide 29 BUN 14 Creatinine 1.08 Glucose 95 Calcium 9.1 Medications Administered Current Inpatient Medications Acetaminophen (Acetaminophen 325 Mg Tab) 650 mg PO Q4H PRN PRN Reason: Pain or Fever Stop: 07/13/20 02:25 Last Admin: 06/13/20 21:00 Dose: 650 mg Documented by: Aspirin (Aspirin 81 Mg Ectab) 81 mg PO [facility] Stop: 07/13/20 08:59 Last Admin: 06/14/20 08:13 Dose: 81 mg Documented by: Atorvastatin Calcium ([facility]atin 40 Mg Tab) [facility] Stop: 07/13/20 08:59 Last Admin: 06/14/20 08:13 Dose: 40 mg Documented by: Clopidogrel Bisulfate (Clopidogrel Bisulfate 75 Mg Tab) [facility] Stop: 07/13/20 16:29 Last Admin: 06/14/20 08:13 Dose: 75 mg Documented by: Ferrous Sulfate ([facility]errous Sulfate 325 Mg Tab) [facility] Stop: 07/13/20 16:59 Last Admin: 06/14/20 08:13 Dose: 325 mg Documented by: Labetalol HCl (Labetalol Hcl Iv 5 Mg/Ml 20ml) 10 mg IV Q4H PRN PRN Reason: Hypertension Stop: 07/13/20 02:25 Last Admin: 06/13/20 02:42 Dose: 10 mg Documented by: Lisinopril (Lisinopril 10 Mg Tab) 10 mg PO QAM [facility] Stop: 07/14/20 08:59 Last Admin: 06/14/20 08:13 Dose: 10 mg Documented by: Miscellaneous Information (Pharmacist Discharge Med Rec Consult) 1 ea N/A UD PRN PRN Reason: Consult Stop: 07/13/20 02:25 Nitroglycerin (Nitroglycerin Sl 0.4 Mg/Tab Tab) 0.4 mg SL UD PRN PRN Reason: Chest Pain Stop: 07/13/20 02:25 Ondansetron HCl (Ondansetron Inj 2 Mg/Ml 2 Ml Vial) 4 mg IV Q6H PRN PRN Reason: Nausea Stop: 07/13/20 02:25 Polyethylene Glycol (Polyethylene (Miralax) 17 Gm Pack) 17 gm PO DAILY PRN PRN Reason: Constipation Stop: 07/13/20 02:25
[2020-06-14] MEDS ORDERED: STROKE PATIENT DISCHARGE STA (13:41)
--- NOTE | 2020-06-14 14:23 | Pharmacy Report ---
Pharmacist Stroke Counseling - Date of Service June 14, 2020 - Scope: Pharmacy has been consulted to provide medication discharge counseling for this patient admitted with transient ischemic attack as per the Pharmacist Discharge Counseling for Stroke Patients Protocol. - Medications on Discharge: Home Medications Medication Instructions Recorded Confirmed No Known Home Medications 06/12/20 06/12/20 New Rx's Medication Instructions Recorded aspirin 81 mg PO QAM 30 Days #30 tab 06/14/20 atorvastatin 40 mg PO QAM 30 Days #30 tab 06/14/20 clopidogrel 75 mg PO QAM 19 Days #19 tab 06/14/20 ferrous sulfate 325 mg PO TIDM 30 Days #90 tab 06/14/20 lisinopril 5 mg PO DAILY #30 tab 06/14/20 - Action: The above medications, specifically ones for stroke treatment/prophylaxis, have been reviewed in detail with the patient and/or patient sales representative groceries(s) prior to discharge. This includes indication, common adverse reactions, drug interactions, and medication administration. Medication counseling has been employed using the teach-back method to ensure understanding. - Outcome: The patient and/or patient sales representative groceries(s) have demonstrated understanding of the medications. Additional comments: - Reviewed all new medications (lisinopril, aspirin, clopidogrel, atorvastatin, and ferrous sulfate) including administration, adverse effects, when to seek medical attention, and proper medication storage (i.e. avoiding areas of higher moisture + keeping out of reach of children/pets). Patient is new to taking chronic medications, but appeared to understand all instructions and no obvious barriers to compliance were identified. Thank you for allowing pharmacy to be involved in the care of this patient. Please call [phone] with any additional questions
[2020-06-15 07:21] LABS: Basophils # (auto) 0.02 K/uL (0-0.2); Basophils % (auto) 0.2 %; Eosinophils # (auto) 0.11 K/uL (0-0.5); Eosinophils % (auto) 1.3 %; Hematocrit (blood only) 31.2 % (37-47); Hemoglobin 9.8 g/dL (12.0-16.0); Immature Granulocytes # (auto) 0.02 K/uL (0.00-0.02); Immature Granulocytes % (auto) 0.2 %; Lymphocytes # (auto) 2.41 K/uL (1.2-3.4); Lymphocytes % (auto) 29.5 %; Mean Corpuscular Hemoglobin 23.9 pg (25-34); Mean Corpuscular Hgb Conc 31.4 g/dL (32-36); Mean Corpuscular Volume 76.1 fL (80-100); Mean Platelet Volume 11.3 fL (7.4-10.4); Monocytes # (auto) 0.59 K/uL (0.11-0.59); Monocytes % (auto) 7.2 %; Neutrophils # (auto) 5.02 K/uL (1.4-6.5); Neutrophils % (auto) 61.6 %; Platelet Count 274 K/uL (130-400); RDW Coefficient of Variation 15.1 % (11.5-14.5); RDW Standard Deviation 42.3 fL (36.4-46.3); White Blood Count 8.17 K/uL (4.8-10.8)
[2020-06-15 08:02] LABS: BUN Creatinine Ratio 18.9 (10-20); Calcium 8.4 mg/dl (8.5-10.1); Creatinine Clr Calc Pharmacy 66.3 ml/min; Est GFR (African American) 74.6; Est GFR (Non-African American) 64.4
[2020-06-15] MEDS: FERROUS SULFATE 325 MG TAB PO SCH (08:21)
[2020-06-15] MEDS: CLOPIDOGREL BISULFATE 75 MG TAB PO SCH (08:22)
[2020-06-15] MEDS: ATORVASTATIN 40 MG TAB PO SCH (08:22)
[2020-06-15] MEDS: ASPIRIN 81 MG ECTAB PO SCH (08:22)
[2020-06-15] MEDS ORDERED: lisinopril 5 MG TAB PO SCH (09:00)
--- NOTE | 2020-06-15 11:55 | Hospitalist Progress Note ---
Date of Service June 15, 2020 Assessment & Plan (1) Hypertensive emergency: Presented to ER with strokelike symptoms involving numbness in right-sided extremities Resolved in the emergency room with 2 episodes while in the hospital Likely secondary to very high blood pressure which was as high as 246/120 Blood pressure seems to be very well controlled She was not taking any medications for high blood pressure as an outpatient Received 1 dose of lisinopril with her hydrochlorothiazide yesterday Received lisinopril 10 this morning and the blood pressure is 127/84 Advised to monitor blood pressure as an outpatient and give lisinopril 5 mg on discharge if the blood pressure is more than systolic 140 Blood pressure is well controlled today Will send home with 5 mg lisinopril daily (2) Paresthesia of right arm and leg: Likely secondary to hypertensive urgency/TIA No evidence of a stroke Appreciate neurology input and recommendation No arrhythmias Echo of the heart showed: Normal LV wall thickness, no regional wall motion abnormality, EF was 60 to 65%, no significant valvular heart disease, no evidence of atrial septal defect Remains stable as of this morning She will get Plavix and aspirin for 21 days then aspirin to continue for life We will need to have an appointment with new neurologist in 4 to 6 weeks 1 episode of transient right upper extremity numbness this morning No focal sensory and/or motor deficit on neuro examination She will be discharged home this afternoon (3) Right arm weakness: No weakness noted (4) Iron deficiency anemia: Has history of abnormal uterine bleeding Blood counts suggest microcytic hypochromic anemia Likely secondary to iron deficiency Ferrous sulfate has been started Advised to keep appointment with [facility] as an outpatient Admission and Anticipated Discharge Date Admission Date: June 13, 2020 Subjective 06/14/2020 The patient was seen and examined in the telemetry unit She has had 2 episodes of numbness involving the right upper extremity since admission which did not last for more than few minutes and without any other associated symptoms Her blood pressure seems to be well controlled and seems to be low as well He will get PT and OT evaluation and probable discharge this afternoon 06/15/2020 The patient was seen and examined in telemetry unit She has had another episode of transient numbness involving the right upper extremity this morning Denies any symptoms during my examination She will be discharged home this afternoon Review of Systems Review of Systems: All systems reviewed and are unremarkable except as noted below Neurologic: no numbness (Right upper extremity and some time right side of the body without any associated symptoms) Physical Exam Physical Exam: Lying in bed comfortably Constitutional: WD/WN, vitals as above Eyes: PERRL, conjunctivae normal, anicteric sclerae ENMT: external ear and nose normal, oropharynx normal Neck: trachea midline, no thyromegaly Respiratory: no respiratory distress Auscultation: lungs clear to auscultation bilaterally Cardiovascular: Rate/Rhythm: regular rate and regular rhythm Heart Sounds: no murmur Extremities: + edema (Trace edema bilaterally) Gastrointestinal (Abdomen): Inspection/Auscultation: normal bowel sounds; abdomen not distended Percussion/Palpation: abdomen soft; abdomen nontender Musculoskeletal: No acute arthritis and/or weakness involving any of the extremities Neurologic: patellar DTR's 2+ bilat, sensation intact Psychiatric: A+Ox3, euthymic affect Lymphatic: no cervical or axillary lymphadenopathy Results & Data Results & Data ([facility]) Vital Signs (Past 12 Hours) Vital Signs Temp Pulse Pulse Resp BP BP Pulse Ox 06/15/20 11:24 36.8 C 57 L 20 145/89 H 97 06/15/20 09:51 36.6 C 61 20 150/86 H 141/87 H 96 06/15/20 08:04 36.6 C 61 20 150/86 H 96 06/15/20 08:00 57 L 06/15/20 04:42 36.6 C 60 18 141/87 H 97 Pulse Ox 06/15/20 11:24 06/15/20 09:51 06/15/20 08:04 06/15/20 08:00 96 06/15/20 04:42 Laboratory Results Short CBC 06/15/20 Range/Units 06:19 WBC 8.17 (4.8-10.8) K/uL Hgb 9.8 L (12.0-16.0) g/dL Hct 31.2 L (37-47) % Plt Count 274 (130-400) K/uL BMP 06/15/20 06:19 Sodium 139 Potassium 4.0 Chloride 105 Carbon Dioxide 30 BUN 19 H Creatinine 1.01 Glucose 85 Calcium 8.4 L Medications Administered Current Inpatient Medications Acetaminophen (Acetaminophen 325 Mg Tab) 650 mg PO Q4H PRN PRN Reason: Pain or Fever Stop: 07/13/20 02:25 Last Admin: 06/13/20 21:00 Dose: 650 mg Documented by: Aspirin (Aspirin 81 Mg Ectab) 81 mg PO [facility] Stop: 07/13/20 08:59 Last Admin: 06/15/20 08:22 Dose: 81 mg Documented by: Atorvastatin Calcium (Atorvastatin 40 Mg Tab) 40 mg PO [facility] Stop: 07/13/20 08:59 Last Admin: 06/15/20 08:22 Dose: 40 mg Documented by: Clopidogrel Bisulfate (Clopidogrel Bisulfate 75 Mg Tab) 75 mg PO [facility] Stop: 07/13/20 16:29 Last Admin: 06/15/20 08:22 Dose: 75 mg Documented by: Ferrous Sulfate (Ferrous Sulfate 325 Mg Tab) 325 [facility] Stop: 07/13/20 16:59 Last Admin: 06/15/20 08:21 Dose: 325 mg Documented by: Labetalol HCl (Labetalol Hcl Iv 5 Mg/Ml 20ml) 10 mg IV Q4H PRN PRN Reason: Hypertension Stop: 07/13/20 02:25 Last Admin: 06/13/20 02:42 Dose: 10 mg Documented by: Lisinopril (Lisinopril 5 Mg Tab) 5 mg PO [facility] Stop: 07/15/20 08:59 Last Admin: 06/15/20 08:21 Dose: 5 mg Documented by: Nitroglycerin (Nitroglycerin Sl 0.4 Mg/Tab Tab) 0.4 mg SL UD PRN PRN Reason: Chest Pain Stop: 07/13/20 02:25 Ondansetron HCl (Ondansetron Inj 2 Mg/Ml 2 Ml Vial) 4 mg IV Q6H PRN PRN Reason: Nausea Stop: 07/13/20 02:25 Polyethylene Glycol (Polyethylene (Miralax) 17 Gm Pack) 17 gm PO DAILY PRN PRN Reason: Constipation Stop: 07/13/20 02:25
--- NOTE | 2020-06-16 08:17 | Discharge Summary ---
Date of Service June 16, 2020 Admission HPI Per Admitting Provider DICTATED BY: Nima England MD DATE OF ADMISSION: 06/13/2020 CHIEF COMPLAINT: Stroke-like symptoms. HISTORY OF PRESENT ILLNESS: A 50-year-old female, no significant medical problems, ongoing tobacco abuse, did not go to family doctor for many years, presents with tingliness and numbness in her right hand and right feet and ankle region, started at 7:00 p.m. on 06/12/2020, initially improved but then again came back and she was brought to the hospital. When she came in, her blood pressure was very high, systolic blood pressures was in 240s. Her initial workup with a CTA of the head and CT of the head is unremarkable. Currently, her symptoms improved. Denies any dysphagia. Speech is okay. No other weakness. No chest pain, no shortness of breath, no cough, no fever, no chills, no loss of sense of smell or taste. No exposure to COVID patients. She gets headaches on and off. Currently, no headache, no blurred vision, no earache, no runny nose, no sore throat. Appetite is okay. Normal bowel and bladder movements. Currently, resting comfortably. Admission Exam Per Admitting Provider GENERAL: The patient is obese, not in acute distress. VITAL SIGNS: Temperature 36.6, pulse 74, respiratory rate 17, blood pressure 220/110, oxygen 95% on room air. HEENT: No pallor, no icterus. Pupils equal, round, reactive to light. NECK: No JVD, no neck masses. CARDIOVASCULAR: S1, S2, regular rate and rhythm, no murmur, no gallop. RESPIRATORY SYSTEM: Normal AP diameter. No accessory muscle use. No wheezing, no crackles. ABDOMEN: Soft, bowel sounds present, nontender, nondistended. CENTRAL NERVOUS SYSTEM: Alert and oriented. Speech is clear. No facial droop. Tongue midline. Extraocular muscles intact. Power 5/5 in all extremities. Sensation is intact. No pronator drift. Coordination of movements normal. EXTREMITIES: No edema, no erythema. Principal Diagnosis Hypertensive urgency, numbness involving the right side extremities likely secondary to TIA Discharge Exam Constitutional WD/WN, vitals as above Eyes PERRL, conjunctivae normal, anicteric sclerae ENMT external ear and nose normal, oropharynx normal Neck trachea midline, no thyromegaly Respiratory no respiratory distress Auscultation: lungs clear to auscultation bilaterally Cardiovascular Rate/Rhythm: regular rate and regular rhythm Heart Sounds: no murmur Extremities: + edema (Trace edema bilaterally) Gastrointestinal (Abdomen) Inspection/Auscultation: normal bowel sounds; abdomen not distended Percussion/Palpation: abdomen soft; abdomen nontender Neurologic patellar DTR's 2+ bilat, sensation intact Psychiatric A+Ox3, euthymic affect Lymphatic no cervical or axillary lymphadenopathy Discharge Data Allergies Allergy/AdvReac Type Severity Reaction Status Date / Time tomato Allergy Unknown FRESH Unverified 06/12/20 23:31 TOMATOES HIVES walnut Allergy Unknown ULCERS Unverified 06/12/20 23:31 MOUTH CONTRASTMEDIA Allergy Unknown IVP Uncoded 06/12/20 23:31 DYE----HIVES Consultations 06/13/20 00:02 ED Decision to Admit Stat 06/13/20 02:26 Consult Case Management - Discharge Planning Routine Consult Case Management - Discharge Planning Routine 06/13/20 08:00 Consult Neurology Routine Ordered Studies 06/12/20 22:52 CT angio head w con Urgent CT angio neck with con Urgent CT head/brain wo con Urgent 06/13/20 02:26 MR brain wo/w con Routine Hospital Course (1) Hypertensive emergency: Presented to ER with strokelike symptoms involving numbness in right-sided extremities Resolved in the emergency room with 2 episodes while in the hospital Likely secondary to very high blood pressure which was as high as 246/120 Blood pressure seems to be very well controlled She was not taking any medications for high blood pressure as an outpatient Received 1 dose of lisinopril with her hydrochlorothiazide yesterday Received lisinopril 10 this morning and the blood pressure is 127/84 Advised to monitor blood pressure as an outpatient and give lisinopril 5 mg on discharge if the blood pressure is more than systolic 140 Blood pressure is well controlled today Will send home with 5 mg lisinopril daily (2) Paresthesia of right arm and leg: Likely secondary to hypertensive urgency/TIA No evidence of a stroke Appreciate neurology input and recommendation No arrhythmias Echo of the heart showed: Normal LV wall thickness, no regional wall motion abnormality, EF was 60 to 65%, no significant valvular heart disease, no evidence of atrial septal defect Remains stable as of this morning She will get Plavix and aspirin for 21 days then aspirin to continue for life We will need to have an appointment with new neurologist in 4 to 6 weeks 1 episode of transient right upper extremity numbness this morning No focal sensory and/or motor deficit on neuro examination She will be discharged home this afternoon (3) Right arm weakness: No weakness noted (4) Iron deficiency anemia: Has history of abnormal uterine bleeding Blood counts suggest microcytic hypochromic anemia Likely secondary to iron deficiency Ferrous sulfate has been started Advised to keep appointment with [facility] as an outpatient Total Time Total Time Spent Total Time Spent (In Minutes): 35 minutes Total Time Includes: Examination of the Patient, Discharge Planning, Medication Reconciliation and Communication With Other Providers Discharge Plan Discharge Items Patient Disposition: Home - Self-Care Reason For Visit: STROKE-LIKE SYMPTOMS Discharge Diagnosis: Hypertensive urgency, numbness involving the right side extremities likely secondary to TIA Condition on Discharge: Good Activity: Resume your previous activity Non-emergency contact: Primary Care Provider Call non-emergency contact if: you have any medication questions and your symptoms worsen Follow-up/Referrals: Dayton Odonnell MD [Primary Care Provider] - (Date & Time 06/17/2020 10:20 AM Provider Dayton Odonnell MD Department Family Practice [facility] ) Diet: Heart Healthy Addtl Attending Provider Instructions: Please check your blood pressure at home Take aspirin and Plavix for a total of 21 days and only aspirin thereafter You will need to have a follow-up appointment with neurologist within 4 to 6 weeks Please make an appointment with your [facility] as an outpatient Pending Studies at Discharge: No Stand-Alone Forms: Medications to Prevent Stroke, [facility], Smoking Cessation Medications and DC Order Prescriptions: New atorvastatin 40 mg Tablet 40 mg PO QAM 30 Days Qty: 30 RF: 0 clopidogrel 75 mg Tablet 75 mg PO QAM 19 Days Qty: 19 RF: 0 aspirin 81 mg Tablet,Delayed Release (Dr/Ec) 81 mg PO QAM 30 Days Qty: 30 RF: 0 ferrous sulfate 325 mg (65 mg iron) Tablet,Delayed Release (Dr/Ec) 325 mg PO TIDM 30 Days Qty: 90 RF: 0 lisinopril 5 mg tablet 5 mg PO DAILY Qty: 30 RF: 0 No Action No Known Home Medications RF: 0 Discharge Orders: Discharge Order (Routine); Ordered 06/15/20 Ordered By: Washington Johansen Admission Data Admit Date/Time: 06/13/20 01:47 Attending Provider: Washington Johansen Admit Provider: Nima England Primary Care Provider: Dayton Odonnell Other Providers: Nima England ; Kamilah Davenport ; Rhett Delgado ; Kamilah Woodard ; Curtis West Other Interventions: Discharge Summary Assessment (RN) Last Done: 06/15/20 09:51
== END 2020-06-15 13:08 | disposition home or self-care (01) | DRG 69 ==
LOC: ED 22:42 → 2S 06-13 01:47